=== PATIENT | female | born 1985 | race Caucasian/White ===

== ENCOUNTER 2017-02-04 11:10 | Outpatient (CLI) | payer MEDICAID ==
[2017-02-04 11:40] LABS: BILIRUBIN,URINE NEGATIVE (NEGATIVE)
[2017-02-04 11:43] LABS: BASOPHILS % (AUTO) 0.3 %; EOSINOPHILS # (AUTO) 0.1 10^3/uL (0.0-0.7); EOSINOPHILS % (AUTO) 1.5 %; HCT - HEMATOCRIT 37.2 % (37.0-47.0); HGB - HEMOGLOBIN 12.8 g/dL (12.0-16.0); LYMPHOCYTES # (AUTO) 1.5 10^3/uL (1.5-3.5); LYMPHOCYTES % (AUTO) 15.9 %; MEAN CORPUSCULAR HEMOGLOBIN 32.1 pg (27.0-31.0); MEAN CORPUSCULAR HGB CONC 34.3 g/dL (32.0-36.0); MEAN CORPUSCULAR VOLUME 93.5 fL (81.0-99.0); MEAN PLATELET VOLUME 9.3 fL (7.9-10.8); MONOCYTES # (AUTO) 0.6 10^3/uL (0.0-1.0); MONOCYTES % (AUTO) 6.8 %; NEUTROPHILS # (AUTO) 6.9 10^3/uL (1.5-6.6); NEUTROPHILS % (AUTO) 75.5 %; RED BLOOD COUNT 3.98 10^6/uL (4.20-5.40); RED CELL DISTRIBUTION WIDTH 11.7 % (12.0-15.0); UNCORRECTED WHITE BLOOD COUNT 9.2 x10^3/uL; WHITE BLOOD COUNT 9.2 x10^3/uL (4.8-10.8)
[2017-02-04 11:52] LABS: WBC,URINE 0-3 /HPF (0-5)
[2017-02-04 13:23] LABS: THYROID STIMULATING HORMONE 1.32 uIU/mL (0.34-5.60)
[2017-02-08 20:41] LABS: TEST RESULT REPORT
== END 2017-02-04 11:11 | disposition home or self-care (01) ==
LOC: LAB 11:10
PROVIDERS: ATTEND Registered Nurse
DX: Z36.9 Encounter for antenatal screening, unspecified (principal)
CPT/HCPCS: 36415; 81001; 81599; 84443; 85025; 86762; 86850; 86900; 86901; 87340; 87389

== ENCOUNTER 2017-02-21 11:20 | Outpatient (CLI) | payer MEDICAID ==
--- NOTE | 2017-02-21 15:43 | Ultrasound Report ---
TRANSVAGINAL IMAGING OF THE CERVIX: 02/21/2017 CLINICAL INDICATION: . TECHNIQUE: As requested, imaging of the cervix was performed. FINDINGS: The cervix measures 3.9 cm, and is closed. There is a single viable intrauterine gestation , with heart rate of 172 BPM. No free fluid is noted. IMPRESSION: A 3.9 CM CERVIX. SINGLE VIABLE GESTATION. JOB #: [id number] EXT JOB #:[id number]
== END 2017-02-21 11:21 | disposition home or self-care (01) ==
LOC: DI 11:20
PROVIDERS: ATTEND Registered Nurse
DX: Z34.81 Encounter for supervision of other normal pregnancy, first trimester (principal)
CPT/HCPCS: 76830

== ENCOUNTER 2017-03-07 18:06 | Outpatient (CLI) | payer MEDICAID ==
--- NOTE | 2017-03-08 15:01 | Ultrasound Report ---
TRANSVAGINAL OB ULTRASOUND: 03/07/2017 CLINICAL INDICATION: Personal history of cervical dysplasia status post LEEP. TECHNIQUE: Transvaginal imaging of the cervix was performed. FINDINGS: The cervix measures 4.5 cm, and is closed. A single viable intrauterine gestation is incidentally noted, with heart rate of 154 BPM. IMPRESSION: A 4.5 CM CERVICAL LENGTH. MTDD
== END 2017-03-07 18:07 | disposition home or self-care (01) ==
LOC: DI 18:06
PROVIDERS: ATTEND Registered Nurse
DX: Z87.410 Personal history of cervical dysplasia (principal)
CPT/HCPCS: 76817

== ENCOUNTER 2017-04-13 11:17 | Outpatient (CLI) | payer MEDICAID ==
--- NOTE | 2017-04-14 11:42 | Ultrasound Report ---
DATE OF SERVICE: 04/13/2017 LIMITED OB ULTRASOUND: 04/13/2017 COMPARISON: OB ultrasound 03/07/2017. INDICATION: Please evaluate cervical length. TECHNIQUE: Endovaginal and transabdominal evaluation. FINDINGS Cervical length measures 4.7 cm. There is no evidence of funneling. Amniotic fluid appears visually adequate. heart rate 150 beats per minute. presentation variable. IMPRESSION: NORMAL APPEARANCE OF THE CERVIX. FOLLOWUP IS AVAILABLE CLINICALLY INDICATED. TD: 04/13/2017 14:37 MTDD
== END 2017-04-13 11:18 | disposition home or self-care (01) ==
LOC: DI 11:17
PROVIDERS: ATTEND Registered Nurse
DX: Z34.81 Encounter for supervision of other normal pregnancy, first trimester (principal)
CPT/HCPCS: 76817

== ENCOUNTER 2017-04-25 12:28 | Outpatient (CLI) | payer MEDICAID ==
--- NOTE | 2017-04-27 15:47 | Ultrasound Report ---
DATE OF SERVICE: 04/25/2017 OB ANATOMY: 04/25/2017 CLINICAL INDICATION: anatomy, followup cervix (history of LEEP). TECHNIQUE: Real-time scanning was performed with route sales representative static images obtained. LAST MENSTRUAL PERIOD 12/02/2016 Clinical Age 20 weeks 4 days US Age 20 weeks 5 days EFW Hadlock 351 g EFW% Hadlock --- Heart Rate 154 bpm EDC 09/08/2017 US EDC 09/07/2017 BPD Hadlock 20 weeks 4 days; Mean mm 48.1 HC Hadlock 20 weeks 5 days; Mean mm 184.0 AC Hadlock 21 weeks 0 days; Mean mm 158.7 FL Hadlock 19 weeks 4 days; Mean mm 30.9 Presentation variable Placental Location posterior Cervical Length 4.44 cm Amniotic Fluid 4.2 cm COMPARISON: 04/13/2017, 03/07/2017, 02/21/2017. FINDINGS: There is a single viable intrauterine gestation, in variable position. heart rate is 154 BPM. The placenta is posterior, without evidence of previa. Cervical length is now 4.4 cm by transvaginal scanning. Amniotic fluid volume is subjectively normal, with a deepest pocket of 4.2 cm. By size, the fetus measures 20 weeks 5 days (20 weeks 4 days per physician office dating). The following anatomic structures were visualized and appear normal: The intracranial contents, including the ventricles and posterior fossa; the lips and orbits; the spine; the heart, including 4 chamber view and outflow tracts, and diaphragm; the abdominal contents, including the stomach, the bilateral kidneys, and urinary bladder, as well as a normal 3 vessel cord insertion; 4 limbs. Visualization of the heart (especially 4-chamber view) was limited by positioning. No free fluid or adnexal lesion is appreciated. IMPRESSION: SINGLE VIABLE INTRAUTERINE GESTATION, WITH SIZE IN KEEPING WITH OFFICE DATING. SUBOPTIMAL VISUALIZATION OF THE FOUR-CHAMBER VIEW OF THE HEART. OTHERWISE , NORMAL ANATOMIC SURVEY. POSTERIOR PLACENTA, WITHOUT EVIDENCE OF PREVIA. CERVICAL LENGTH OF 4.4 CM TRANSVAGINALLY. TD: 04/25/2017 18:46 MTDD
== END 2017-04-25 12:29 | disposition home or self-care (01) ==
LOC: DI 12:28
PROVIDERS: ATTEND Nurse Practitioner Obstetrics & Gynecology
DX: Z36.9 Encounter for antenatal screening, unspecified (principal)
CPT/HCPCS: 76811

== ENCOUNTER 2017-06-06 11:12 | Outpatient (CLI) | payer MEDICAID ==
--- NOTE | 2017-06-07 11:46 | Ultrasound Report ---
OB FOLLOWUP: 06/06/2017 CLINICAL INDICATION: Incomplete anatomy. COMPARISON: 04/25/2017. TECHNIQUE: Real-time scanning was performed with member service representative static images obtained. LAST MENSTRUAL PERIOD 12/03/2016 Clinical Age 26 weeks 3 days US Age 26 weeks 5 days EFW Hadlock 905 g EFW% Hadlock 45% Heart Rate 157 bpm EDC 09/09/2017 US EDC 09/07/2017 BPD Hadlock 26 weeks 6 days; Mean mm 66.8 HC Hadlock 27 weeks 3 days; Mean mm 252.9 AC Had[place] 26 weeks 4 days; Mean mm 221.3 FL Hadlock 25 weeks 2 days; Mean mm 45.9 Presentation cephalic Placental Location posterior Cervical Length --- Amniotic Fluid 15.0 cm FINDINGS: There is a single viable intrauterine gestation, in cephalic presentation. heart rate is 157 BPM. The placenta is posterior, without evidence of previa. Amniotic fluid volume is normal, with an SUSAN of 15.0. By size, the fetus measures 26 weeks 5 days (26 weeks 3 days by dating from the physician's office). The heart, including 4-chamber view, appears unremarkable. No free fluid or adnexal lesion is appreciated. IMPRESSION: UNREMARKABLE COMPLETION OF THE ANATOMIC SURVEY. EXPECTED GROWTH. MTDD
== END 2017-06-06 11:13 | disposition home or self-care (01) ==
LOC: DI 11:12
PROVIDERS: ATTEND Nurse Practitioner Obstetrics & Gynecology
DX: Z36.2 Encounter for other antenatal screening follow-up (principal)
CPT/HCPCS: 76816

== ENCOUNTER 2017-06-14 11:01 | Outpatient (CLI) | payer MEDICAID ==
[2017-06-14 12:56] LABS: HGB - HEMOGLOBIN 11.8 g/dL (12.0-16.0); MEAN CORPUSCULAR HEMOGLOBIN 31.8 pg (27.0-31.0); MEAN CORPUSCULAR HGB CONC 34.8 g/dL (32.0-36.0); MEAN CORPUSCULAR VOLUME 91.4 fL (81.0-99.0); MEAN PLATELET VOLUME 9.8 fL (7.9-10.8); RED BLOOD COUNT 3.71 10^6/uL (4.20-5.40); RED CELL DISTRIBUTION WIDTH 12.6 % (12.0-15.0); WHITE BLOOD COUNT 10.5 x10^3/uL (4.8-10.8)
== END 2017-06-14 11:02 | disposition home or self-care (01) ==
LOC: LAB 11:01
PROVIDERS: ATTEND Nurse Practitioner Obstetrics & Gynecology
DX: Z36.9 Encounter for antenatal screening, unspecified (principal)
CPT/HCPCS: 36415; 82950; 86850

== ENCOUNTER 2017-08-09 08:00 | Outpatient (CLI) | payer MEDICAID | END 2017-08-09 08:01 | disposition home or self-care (01) | LOC: LAB.R 08:00 | PROVIDERS: ATTEND Nurse Practitioner Obstetrics & Gynecology | DX: Z36.85 Encounter for antenatal screening for Streptococcus B (principal) | CPT/HCPCS: 87081 ==

== ENCOUNTER 2017-09-13 12:28 | Outpatient (CLI) | payer MEDICAID ==
[2017-09-13 12:58] LABS: BASOPHILS % (AUTO) 0.5 %; EOSINOPHILS # (AUTO) 0.1 10^3/uL (0.0-0.7); EOSINOPHILS % (AUTO) 1.1 %; HGB - HEMOGLOBIN 12.9 g/dL (12.0-16.0); LYMPHOCYTES # (AUTO) 1.2 10^3/uL (1.5-3.5); LYMPHOCYTES % (AUTO) 14.6 %; MEAN CORPUSCULAR HEMOGLOBIN 31.6 pg (27.0-31.0); MEAN CORPUSCULAR VOLUME 90.1 fL (81.0-99.0); MEAN PLATELET VOLUME 12.1 fL (7.9-10.8); MONOCYTES # (AUTO) 0.7 10^3/uL (0.0-1.0); MONOCYTES % (AUTO) 8.2 %; NEUTROPHILS # (AUTO) 6.4 10^3/uL (1.5-6.6); NEUTROPHILS % (AUTO) 75.6 %; PLT - PLATELET COUNT 127 10^3/uL (130-450); RED BLOOD COUNT 4.09 10^6/uL (4.20-5.40); RED CELL DISTRIBUTION WIDTH 13.4 % (12.0-15.0); WHITE BLOOD COUNT 8.4 x10^3/uL (4.8-10.8)
[2017-09-13 13:10] LABS: CREATININE 0.4 mg/dL (0.4-1.0); URIC ACID 5.4 mg/dL (2.6-7.2)
[2017-09-13 13:14] LABS: CREATININE,URINE 42.2 mg/dL; PROTEIN/CREATININE RATIO,URINE 0.2 (<=0.2)
[2017-09-13 13:49] VITALS: BP 132/78
== END 2017-09-13 14:23 | disposition home or self-care (01) ==
LOC: WFO 12:28 → FBP 12:29 → WFO 14:23
PROVIDERS: ATTEND Registered Nurse
DX: O13.3 Gestational [pregnancy-induced] hypertension without significant proteinuria, third trimester (principal); Z3A.40 40 weeks gestation of pregnancy
CPT/HCPCS: 36415; 82565; 82570; 83615; 84156; 84450; 84550; 85025

== ENCOUNTER 2017-09-13 12:50 | Inpatient (IN) | payer MEDICAID ==
[2017-09-13] MEDS ORDERED: SODIUM CHLORIDE FLUSH 0.9% 10 ML SYRINGE ONE (20:57)
[2017-09-13 21:30] LABS: BASOPHILS # (AUTO) 0.1 10^3/uL (0.0-0.1); BASOPHILS % (AUTO) 0.6 %; EOSINOPHILS # (AUTO) 0.1 10^3/uL (0.0-0.7); EOSINOPHILS % (AUTO) 1.2 %; HGB - HEMOGLOBIN 12.9 g/dL (12.0-16.0); LYMPHOCYTES # (AUTO) 1.4 10^3/uL (1.5-3.5); LYMPHOCYTES % (AUTO) 17.3 %; MEAN CORPUSCULAR HEMOGLOBIN 30.6 pg (27.0-31.0); MEAN CORPUSCULAR HGB CONC 33.6 g/dL (32.0-36.0); MONOCYTES # (AUTO) 0.7 10^3/uL (0.0-1.0); MONOCYTES % (AUTO) 8.8 %; NEUTROPHILS # (AUTO) 5.9 10^3/uL (1.5-6.6); NEUTROPHILS % (AUTO) 72.1 %; PLT - PLATELET COUNT 137 10^3/uL (130-450); RED BLOOD COUNT 4.21 10^6/uL (4.20-5.40); RED CELL DISTRIBUTION WIDTH 13.6 % (12.0-15.0); WHITE BLOOD COUNT 8.2 x10^3/uL (4.8-10.8)
[2017-09-13] MEDS ORDERED: fentaNYL 100 MCG/2 ML VIAL IVP PRN (22:01)
[2017-09-13] MEDS ORDERED: ONDANSETRON 4 MG/2 ML VIAL IVP PRN (22:01)
--- NOTE | 2017-09-13 22:07 | PROVIDER PROGRESS NOTE ---
Labor Progress Note - Uterine Monitoring Uterine Monitoring Mode: positive: External toco Contraction Frequency (min/apart): none - Monitoring Monitor Mode: positive: External ultrasound Heart Rate Baseline: 150 Heart Rate Variability: positive: Moderate (6-25 bmp) Accelerations: positive: Present, 15x15 Decelerations: positive: None Strip Review: positive: Category I - Vaginal Exam Dilation (in cm): FT Effacement (%): 70 Station: -2 Cervical Position: Midposition - Labor Progress Note Labor Progress Note/Additional Text: Bethany Zapata is a 31 y/o @ 40w4d by first trimester US who received consistent care from the first trimester onward. Her has only recently been complicated by new onset HTN w/ proteinuria & thrombocytopenia. She has been counseled regarding the possible & probable etiologies of these findings. She has no neuro s/sx. She has no neuro findings. She has had no severe-range BPs. She has no hx of pre-existing HTN. Induction of labor was recommended & preinduction cervical ripening is necessary. Bethany & Cleopatra have carefully considered all options & have elected mechanical ripening w/ placement of transcervical balloon catheter. Full PARQ was held & informed consent obtained. [place] catheter was placed in typical sterile fashion w/ use of speculum & stylet ; uterine balloon inflated w/ 60mL NS & vaginal balloon inflated w/ 40mL NS, traction applied & distal end of catheter taped to medial R thigh. Pt karissa well. Will reassess cervical status for expulsion in am & initiate misoprostol if no expulsion @ that point. Encouraged maternal rest.
[2017-09-14] MEDS: SODIUM CHLORIDE FLUSH 0.9% 10 ML SYRINGE IVP PRN (00:47)
[2017-09-14] MEDS: SODIUM CHLORIDE FLUSH 0.9% 10 ML SYRINGE IVP SCH ×3 (00:47→17:26)
[2017-09-14] MEDS: miSOPROStol 100 MCG TABLET BC SCH ×3 (09:18→18:26)
--- NOTE | 2017-09-14 09:19 | PROVIDER PROGRESS NOTE ---
Labor Progress Note - Uterine Monitoring Uterine Monitoring Mode: positive: External toco Contraction Frequency (min/apart): RARE - Monitoring Monitor Mode: positive: External ultrasound Heart Rate Baseline: 145 Heart Rate Variability: positive: Moderate (6-25 bmp) Accelerations: positive: Present, 15x15 Decelerations: positive: None Strip Review: positive: Category I - Vaginal Exam Dilation (in cm): 3 Effacement (%): 90 Station: -3 Cervical Position: Midposition - Labor Progress Note Labor Progress Note/Additional Text: S: Bethany is doing well. She did have difficulty sleeping overnight secondary to disruptions from necessary care & some discomfort w/ cramping s/p [place] catheter placement. She has had no LOF or bloody show. She does not feel she needs any intervention for her discomfort @ this time. She denies RUELAS/vision changes. O: AAOx3, NAD [place] female VSS: BP max 130s/80s @ this time EFM: BL 145bpm, +accels, no decels, mod jon TOCO: rare, occasional uterine contraction SVE: [place] catheter in place, cervix 3cm/90/-3, soft, midposition A: 31 y/o @ 40w5d by first trimester US, new onset HTN Preinduction cervical ripening w/ transcervical catheter placement GBS negative, IBOW FHTs cat I Normotensive @ present; thrombocytopenia stable, no neuro s/sx Adequate pain control w/ desire for unmedicated delivery P: 1. Reviewed induction process, will add misoprostol 50mcg q 4 hours until expulsion of catheter balloon 2. Encouraged intermittent rest & ambulation; re-apply traction to distal end of catheter 3. Reviewed gHTN, PET, re-assess labs this evening (x24 hours), earlier as indicated 4. Ongoing CEFM, ongoing careful BP evaluation w/ intervention as clinically warranted 5. Reassess cervical status x4 hours, earlier PRN 6. Reviewed plan of care w/ pt & RN @ bedside; Dr. Goodson, back-up MENTAL HEALTH CLINICIAN apprised of clinical scenario; all w/o concerns
[2017-09-14] MEDS: LACTATED RINGERS 1,000 ML IV SCH ×2 (09:21→09:22)
--- NOTE | 2017-09-14 18:29 | HISTORY & PHYSICAL EXAMINATION ---
Admit History - Instructions [place]ash: -Left hand click circles element as positive or present. -Right hand click slashes element as negative or not present. - Visit Reason Visit Reason: Other (induction of labor for gestational HTN) - : 4 Parity: 0 Premature: 0 Ectopic: 0 : 0 Care: positive: [facility] (initiated care @ 9 weeks' gestation x14 visits) Complications This : positive: induced HTN, Other ( hx of LEEP; cervical length stable, stenotic initially, able to be disrupted w/ uterine sound & placement of transcervical [place] catheter; rubella NI) Smoking Status: Former smoker - Mother's Labs Mother's Blood Type: positive: A Mother's RH: positive: Positive GBS: positive: Group B Step Negative Rubella Status: positive: Non-immune Meds/Allgy - Allergies Allergies/Adverse Reactions: Allergies Allergy/AdvReac Type Severity Reaction Status Date / Time No Known Drug Allergies Allergy Verified 09/13/17 23:47 Review of Systems - Constitutional Constitutional: denies: Fatigue, Fever, Chills - Eyes Eyes: denies: Blurred vision, Spots in vision, Dipolpia - Cardiovascular Cariovascular: denies: Irregular heart rate, Palpitations, Chest pain, Edema - Respiratory Respiratory: denies: Cough, Sputum production, Wheezing, Snoring - Gastrointestinal Gastrointestinal: reports: Abdominal pain (cramping w/ uterine contractions). denies: Constipation, Diarrhea, Nausea, Vomiting - Genitourinary Genitourinary: reports: Frequency, Urgency. denies: Dysuria - Musculoskeletal Musculoskeletal: reports: Back pain. denies: Muscle pain, Muscle aches - Integumentary Integumentary: denies: Rash, Pruritis, Lesions, Dryness - Neurological Neurological: denies: General weakness, Focal weakness, Headache, Numbness - Psychiatric Psychiatric: reports: Anxiety. denies: Depression - All Other Systems All Other Systems: reports: Other (+bloody show; no LOF, +uterine contractions, +FM) Physical - Abdominal Exam Vital Signs: Temp Pulse Resp BP Pulse Ox 36.7 C 96 16 107/62 99 09/14/17 08:00 09/14/17 08:00 09/14/17 08:00 09/14/17 08:00 09/14/17 08:00 Contraction Frequency (min/apart): 1-4 Contraction Intensity: positive: Mild to moderate Uterine Resting Tone: positive: Soft - Monitoring Heart Rate Baseline: 145 Strip Review: positive: Category I (moderate variability +accels, no decels) - Presentation Presentation: positive: Vertex ( position LOP w palpable hand above head) - Vaginal Exam Membranes: positive: Membranes intact Dilation (in cm): 6 Effacement (%): 80 Station: positive: Ballotable Cervical Position: positive: Anterior (soft) - Speculum Exam Speculum Exam Performed: positive: No Findings: negative: Gross leak - Other Notes Labor Progress Note/Additional Text: Bethany Zapata is a 31 y/o @ 40w6d by 9 week US, consistent w/ LMP dating, who presented for routine care, at which point elevated BP was identified & PET labs demonstrated mild thrombocytopenia & TP/Cr 0.2. Induction of labor w/ preinduction cervical ripening was recommended & the pt elected mechanical cervical ripening followed by combination mechanical-medical (prostaglandin) cervical ripening, which resulted in favorable cervical status over a period of 20 hours. Status post 2 doses buccal misoprostol 50mcg & transcervical catheter placement, SVE is 6/80/-2, midposition & soft. She is now admitted for induction of labor for gestational HTN @ term. She is merlyn regularly at this point & has IBOW. Bethany's has been complicated by a hx of LEEP w/ stable cervical status & initial cervical stenosis that resolved w/ transcervical balloon placement. She is Rubella non- immune & will need MMR vaccination in the period. Bethany intends to have an unmedicated delivery & has a detailed plan w/ her hopes & intentions. 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 [place]; denies ETOH/drugs/tobacco; hx anxiety, declines SSRI treatment, no hx depression PE: GEN: AAOX3, NAD [place] GRAVID FEMALE HEENT: GROSSLY NORMOCEPHALIC & ATRAUMATIC RESP: CTA B/L T/O CARDIAC: RRR NLS1S2, NO MURMUR GI: GRAVID, TENDER W/ CONTRACTIONS; CONTRACTIONS PALPABLY MODERATE; LIE LONGITUDINAL, PRESENTATION CEPHALIC; POSITION LOP : NO LESION, NO LOF, +BLOODY MUCOID EXUDATE; SVE: 6/80/-2 MS: FROM T/O, NO DEFORMITY, NO ERYTHEMA, NO NOTABLE EDEMA SKIN: WARM, WELL-PERFUSED, C/D/I, NO LESION NEURO: NO FOCAL DEFICIT PSYCH: MILD ANXIETY, PLEASANTLY CONVERSANT, WELL-SUPPORTED BY SISTERSHANA, & , CLEOPATRA Plan for Labor - Plan For Labor I expect patient to be DC'd or transferred within 96 hours.: Yes Plan for Labor: 1. Admit to inpatient 2. Repeat PET labs 3. Reviewed optimal positioning & maternal positioning to encourage rotation & descent 4. Reviewed pain management options & coping strategies, pt again interested in hydrotherapy; not interested in analgesia/anesthesia & is hoping to avoid both 5. Reviewed anticipatory guidance for active phase labor & second stage of labor 6. Reviewed present malposition & implications 7. Reassess cervical status x4 hours, earlier PRN; Anticipate Pitocin infusion if no cervical change x4 hours 8. Reviewed plan of care w/ pt, partner, pt's sister, RN @ bedside; all in agreement, without concerns; Dr. Goodson, back-up FACULTY ADMINISTRATOR apprised of clinical scenario; in agreement w/ present plan of care.
[2017-09-14 19:04] LABS: HGB - HEMOGLOBIN 12.3 g/dL (12.0-16.0); MEAN CORPUSCULAR HEMOGLOBIN 30.4 pg (27.0-31.0); MEAN CORPUSCULAR HGB CONC 33.2 g/dL (32.0-36.0); MEAN CORPUSCULAR VOLUME 91.4 fL (81.0-99.0); MEAN PLATELET VOLUME 11.5 fL (7.9-10.8); RED BLOOD COUNT 4.07 10^6/uL (4.20-5.40); RED CELL DISTRIBUTION WIDTH 13.4 % (12.0-15.0); WHITE BLOOD COUNT 11.3 x10^3/uL (4.8-10.8)
[2017-09-14 19:16] LABS: URIC ACID 5.4 mg/dL (2.6-7.2)
[2017-09-15] MEDS: CALCIUM CARBONATE CHEW 500 MG TABLET PO SCH ×2 (00:08→17:49)
--- NOTE | 2017-09-15 00:12 | PROVIDER PROGRESS NOTE ---
Labor Progress Note - Uterine Monitoring Uterine Monitoring Mode: positive: External toco Contraction Frequency (min/apart): irritability w/ occasional strong, inconsistent contractions Contraction Intensity: positive: Strong, Irritability Uterine Resting Tone: positive: Soft - Monitoring Monitor Mode: positive: External ultrasound Heart Rate Baseline: 140 Heart Rate Variability: positive: Moderate (6-25 bmp) Accelerations: positive: Present, 15x15 Decelerations: positive: None Strip Review: positive: Category I - Vaginal Exam Dilation (in cm): 7 Effacement (%): 80 Station: -3 Cervical Position: Midposition - Labor Progress Note Labor Progress Note/Additional Text: S: Bethany complains of cramping & back pain w/ uterine contractions. Her sister & are present at the bedside & involved & very supportive. She does not desire analgesia/anesthesia & is coping well w/ her discomfort. She has had no LOF but has had some copious bloody show O: AAOx3, NAD [place] female VSS, BP presently 126/86 PET labs stable, PLT 133K EFM BL 140bpm, +accels, no decels, mod jon TOCO: UCs q 2-6 min, palp strong, irritability between SVE: 7/80/-3 BBOW, position LOP, deflexed A: 31 y/o @ 41w gestation by 1st trimester US s/p effective mechanical/medical cervical ripening ghtn w/o severe-range BPs, no s/sx PET FHTs cat I Adequate pain control w/o analgesia/anesthesia malposition w/ likely ineffective labor pattern @ this time GBS negative w/ IBOW P: 1. Rebozo use demonstrated & performed over a period of an hour, alternating w/ position changes, reviewed optimal positioning & optimal maternal positioning to facilitate rotation & descent 2. Reviewed implications of position; will defer Pitocin infusion until position improves, will defer AROM 3. Reviewed management options @ this time; pt elects rest & augment in am if no further cervical change, feels she could rest, reviewed positioning in bed to promote rotation & descent 4. Reviewed pain management options 5. Ongoing careful monitoring for s/sx PET; BP stable, may defer assessment to promote maternal rest, reassess when she wakes 6. Will reassess cervical status x6 hours, earlier PRN 7. Reviewed plan of care w/ pt, pt's partner, pt's sister, RN @ bedside; all in agreement, without concern
[2017-09-15] MEDS: SODIUM CHLORIDE FLUSH 0.9% 10 ML SYRINGE IVP SCH ×5 (06:30→22:47)
--- NOTE | 2017-09-15 11:00 | PROVIDER PROGRESS NOTE ---
Labor Progress Note - Uterine Monitoring Uterine Monitoring Mode: positive: External toco Contraction Frequency (min/apart): 4-6 Contraction Intensity: positive: Moderate to strong Uterine Resting Tone: positive: Soft - Monitoring Monitor Mode: positive: External ultrasound Heart Rate Baseline: 145 Heart Rate Variability: positive: Moderate (6-25 bmp) Accelerations: positive: Present, 15x15 Decelerations: positive: None Strip Review: positive: Category I - Vaginal Exam Dilation (in cm): 7 Effacement (%): 80 Station: -2 Cervical Position: Midposition (soft; position KAY) - Labor Progress Note Labor Progress Note/Additional Text: S: Bethany is generally comfortable w/o desire for intervention for pain management. She was able to sleep for a consistent 6.5 hours overnight & feels refreshed. She is tolerating po intake w/o difficulty. She is noticing anterior cramping w/ contractions and no longer has back pain when she has contractions. She is freely mobile w/o limitation or discomfort. She continues to hope for minimal intervention w/o analgesia/anesthesia for pain management. She utilized the breast pump B/L this morning to stimulate endogenous oxytocin release w/ the effect of increasing the frequency, duration & intensity of uterine contractions. However, she does not feel that these contractions are any more consistent when she is not actively pumping. Cleopatra is present at the bedside & is involved & very supportive. O: AAOx3, NAD [place] female VSS BP 131/81 EFM: BL 145bpm, +accels, no decels, mod variability TOCO: UCs q4-6 min x60-120 min, palp strong SVE: 7/80/-2, midposition, soft, BBOW, position KAY A: 31 y/o @ 41w gestation by early first trimester US, IOL for ghtn No severe range BPs, stable PLT & PET labs, no s/sx severe PET FHTs cat I s/p effective mechanical & medical cervical ripening, not in active labor-- ineffective contraction pattern Adequate pain control w/o analgesia/anesthesia GBS neg w/ IBOW malposition corrected w/ maternal position changes/rebozo techniques P: 1. Reviewed management options @ this time, pt declines AROM for now, PARQ held re: Pitocin infusion; begin Pitocin infusion @ 2mU/min & titrate per protocol to maintain adequate contraction pattern by tocometry; pt may pump simultaneously to continue to encourage endogenous oxytocin release 2. Reviewed physiology of labor, anticipatory guidance for active phase labor, second stage of labor 3. Reviewed pain management options 4. Reviewed optimal maternal positioning to facilitate descent 5. Reassess cervical status x4 hours, earlier PRN 6. Reviewed plan of care w/ pt, partner & RN @ bedside; all in agreement, without concerns; Dr. Goodson, back-up PETROL TANKER DRIVER apprised re: pt's clinical scenario
[2017-09-15] MEDS: LACTATED RINGERS 1,000 ML IV SCH ×2 (11:10→19:06)
[2017-09-15] MEDS: OXYTOCIN/SODIUM CHLORIDE 500 ML IV SCH (11:19)
[2017-09-15] MEDS ORDERED: LIDOCAINE 1% 50 ML MDV ONE (15:11)
--- NOTE | 2017-09-15 18:17 | PROVIDER PROGRESS NOTE ---
Labor Progress Note - Uterine Monitoring Uterine Monitoring Mode: positive: External toco Contraction Frequency (min/apart): 2-3 minutes x4 hours on maximal Pitocin infusion of 4mU/min Contraction Intensity: positive: Moderate to strong Uterine Resting Tone: positive: Soft - Monitoring Monitor Mode: positive: External ultrasound Heart Rate Baseline: 145 Heart Rate Variability: positive: Moderate (6-25 bmp) Accelerations: positive: Present, 15x15 Decelerations: positive: None Strip Review: positive: Category I - Vaginal Exam Dilation (in cm): 7 Effacement (%): 80 Station: -2 Cervical Position: Midposition - Labor Progress Note Labor Progress Note/Additional Text: S: Bethany is very uncomfortable w/ contractions, able to breathe through them, able to be conversant between. Ambulating & moving about the room. Does not desire analgesia/anesthesia. Cleopatra & Mary are present & very involved & supportive. O: AAOx3, NAD [place] female VSS BP most recently 127/87 EFM BL 145bpm + accels, no decels, mod variability TOCO: UCs q2-3 minutes x60-80 seconds, palpably moderate SVE @ 1530: 7/80/-2 BBOW, face presentation; SVE @ 1730 7/80/-2 BBOW, face presentation, despite attempts to rotate w/ maternal position changes, Pitocin infusion discontinued @ 1730 secondary to persistent malpresentation A: 31 y/o @ 41w gestation, IOL secondary to ghtn w/o s/sx severe PET GBS negative, IBOW FHTs cat I Persistent malpresentation w/o cervical change despite adequate contractions by tocometry >4 hours Adequate pain control w/o desire for analgesia/anesthesia @ this time Normotensive w/o severe-range pressures P: 1. Reviewed clinical scenario & implications @ length w/ pt, partner & pt's sister 2. Reviewed attendant risks of continuing current course of action, including persistent malpresentation w/ failure to descend, difficulty disengaging the head during surgery, cord prolapse w/ SROM; Pitocin to remain off 3. Dr. Goodson DO, called to bedside to evaluate pt; he recommends operative delivery, given risks & no cervical change, persistence of malpresentation 4. Reviewed at length LTCS process & Dr. Goodson @ bedside to consent pt for LTCS 5. Anticipate primary LTCS for failure to progress in the setting of malpresentation
[2017-09-15] MEDS ORDERED: AZITHROMYCIN 250 MG TABLET PO STA (19:03)
[2017-09-15] MEDS ORDERED: ceFAZolin 2 GM/50 ML 2 GM/50 ML BAG IV SCH (19:15)
[2017-09-15] MEDS ORDERED: CITRIC ACID/SODIUM CITRATE 15 ML UDC PO ONE ×3 (19:19→20:53)
[2017-09-15] MEDS ORDERED: METHYLERGONOVINE 0.2 MG/ML AMP IM PRN (19:27)
[2017-09-15] MEDS ORDERED: diphenhydrAMINE INJ 50 MG/ML VIAL IVP PRN (19:27)
[2017-09-15] MEDS ORDERED: OXYTOCIN 10 UNIT/ML VIAL IV ONE ×2 (19:27→20:53)
[2017-09-15] MEDS ORDERED: TERBUTALINE 1 MG/ML VIAL SUBQ ONE (19:31)
[2017-09-15] MEDS ORDERED: LACTATED RINGERS 1,000 ML IV ONE ×2 (19:51→20:30)
[2017-09-15] MEDS ORDERED: LACTATED RINGERS 1,000 ML IV SCH (20:00)
[2017-09-15] MEDS ORDERED: fentaNYL 100 MCG/2 ML VIAL IVP ONE (20:53)
[2017-09-15] MEDS ORDERED: ePHEDrine 50 MG/ML VIAL IVP ONE (20:53)
--- NOTE | 2017-09-15 21:41 | PROCEDURE REPORT ---
Hospitalist Procedure Note - Procedure Note Procedure Note: POST-OPERATIVE NOTE: PRE-OP DX: 41 WEEKS, FAILURE TO PROGRESS, FACE PRESENTATION POST-OP DX: SAME OPERATION PEFORMED: EDWINA SURGEON: NOLVIA ASSIST: [place]IDA FOUNTAIN GUERRIER: EUNICE PACKAGING MACHINE SUPPLIES DISTRIBUTOR: VIVEK ANS: SPINAL FINDINGS: NORMAL ADNEXA BL, 3 VESSEL CORD, CLEAR AF, NORMAL PLACENTA, LOOSE NUCHAL CORD, VIABLE MALE (WT. PENDING) WITH 9/9 DELIVERED AT 2035 HOURS. PRE-OP ABX: ANCEF 2 GM, ZITHROMAX 500 MG FLUIDS (ML): LR 1,400 EBL 800 UO 300 DRAIN: WAY SPECIMEN: NONE COMPLICATIONS: NONE CONDITION: STABLE
[2017-09-15] MEDS ORDERED: ONDANSETRON 4 MG/2 ML VIAL IVP PRN (22:03)
[2017-09-15] MEDS: SIMETHICONE CHEW 80 MG TABLET PO SCH (22:45)
[2017-09-15] MEDS: DOCUSATE SODIUM 100 MG CAPSULE PO SCH (22:45)
[2017-09-15] MEDS: KETOROLAC 30 MG/ML VIAL IV SCH (22:47)
--- NOTE | 2017-09-15 23:16 | OPERATIVE REPORT ---
DATE OF SERVICE: 09/15/2017 Physician: Levi Goodson DO PREOPERATIVE DIAGNOSES: 1. 41 weeks' gestation. 2. Failure to progress. 3. Face presentation. POSTOPERATIVE DIAGNOSES: 1. 41 weeks' gestation. 2. Failure to progress. 3. Face presentation. NAME OF PROCEDURE: Low transverse section. SURGEON: Levi Goodson DO CTC OPERATOR: [address] CNM CHICK GRADER: Dr. Tarango ANESTHESIA: Spinal INTRAOPERATIVE FINDINGS: Normal adnexa bilaterally, 3-vessel cord, clear amniotic fluid upon entry into the uterine cavity. Normal placenta. Loose nuchal cord at the time of delivery. The delivery was productive of a viable male infant with Apgars of 9 and 9, that delivered at 2035 hours. The weight is pending at the time of this dictation. PREOPERATIVE ANTIBIOTICS: 2 g of Ancef and 500 mg of Zithromax. INTRAOPERATIVE FLUIDS: Lactated Ringer's 1400 mL. ESTIMATED BLOOD LOSS: 800 mL. URINE OUTPUT: 300 mL DRAIN: A Garcia. SPECIMENS: None. COMPLICATIONS: None. CONDITION: Stable. DESCRIPTION OF PROCEDURE: The patient was appropriately counseled and consented for the operation. She was taken to the operating room where an adequate anesthetic level was achieved after spinal anesthesia, placed in supine position with the right hip roll. A normal heart rate was obtained with the Doppler. The patient was prepped and draped in routine fashion with a Garcia catheter in place. After the patient was prepped and draped and adequate anesthetic level was confirmed, a Pfannenstiel incision was made. Sharp dissection was carried down to the level of the fascia, which was nicked on both sides at the midline. The fascial incision was extended laterally and upwards sharply. The peritoneal cavity entered bluntly. The bladder blade inserted. A bladder flap created and a low transverse uterine incision was made with the scalpel and was extended laterally and upwards sharply with bandage scissors. Clear amniotic fluid was noted upon entry into the uterine cavity. The head was elevated easily through the uterine incision. The loose nuchal cord was reduced. The umbilical cord was clamped x2, cut between the clamps and the infant was handed to the sales support rep. IV Pitocin was then started. Cord blood was obtained. The placenta delivered spontaneously. The uterus was exteriorized and wrapped with a moist laparotomy sponge. The uterine incision was closed in 2 layers, the first a running locking layer of 1 chromic and the second an imbricating layer of 1 chromic. Several [id number] sutures along the incision were required for hemostasis. The anterior and posterior cul-de-sacs were irrigated , suctioned and noted to be dry. The pericolic gutters were noted to be dry. Peritoneal edges and muscle bellies were noted to be dry. The fascia was closed with a running 1 Vicryl. The subcutaneous fat irrigated, suctioned and noted to be dry. The skin was reapproximated with a running subcuticular suture of 3-0 Monocryl, followed by Steri-Strips and a sterile dressing. All sponge, needle and instrument counts were correct. The patient was transferred to the recovery room in good condition. TD: 09/15/2017 22:51 STORM
[2017-09-16] MEDS ORDERED: CARBOPROST TROMETHAMINE 250 MCG/ML AMP IM SCH (01:34)
[2017-09-16] MEDS: oxyCOD/ACETAMIN 5 MG/325 MG TABLET PO PRN ×6 (02:51→23:11)
[2017-09-16] MEDS: ACETAMINOPHEN 500 MG TABLET PO SCH ×4 (03:35→20:55)
[2017-09-16] MEDS: KETOROLAC 30 MG/ML VIAL IV SCH ×2 (04:42→11:04)
[2017-09-16] MEDS: SODIUM CHLORIDE FLUSH 0.9% 10 ML SYRINGE IVP PRN ×2 (04:47→11:04)
[2017-09-16 05:44] LABS: BASOPHILS % (AUTO) 0.2 %; EOSINOPHILS % (AUTO) 0.3 %; HGB - HEMOGLOBIN 10.1 g/dL (12.0-16.0); LYMPHOCYTES # (AUTO) 0.9 10^3/uL (1.5-3.5); LYMPHOCYTES % (AUTO) 8.4 %; MEAN CORPUSCULAR HEMOGLOBIN 31.6 pg (27.0-31.0); MEAN CORPUSCULAR HGB CONC 34.2 g/dL (32.0-36.0); MEAN CORPUSCULAR VOLUME 92.5 fL (81.0-99.0); MEAN PLATELET VOLUME 10.6 fL (7.9-10.8); MONOCYTES # (AUTO) 0.8 10^3/uL (0.0-1.0); MONOCYTES % (AUTO) 7.3 %; NEUTROPHILS # (AUTO) 9.4 10^3/uL (1.5-6.6); NEUTROPHILS % (AUTO) 83.8 %; PLT - PLATELET COUNT 100 10^3/uL (130-450); RED BLOOD COUNT 3.18 10^6/uL (4.20-5.40); RED CELL DISTRIBUTION WIDTH 13.8 % (12.0-15.0); WHITE BLOOD COUNT 11.2 x10^3/uL (4.8-10.8)
[2017-09-16] MEDS: SIMETHICONE CHEW 80 MG TABLET PO SCH ×2 (06:21→14:16)
[2017-09-16] MEDS: OXYTOCIN/SODIUM CHLORIDE 500 ML IV SCH ×3 (07:42→11:26)
[2017-09-16] MEDS ORDERED: AZITHROMYCIN INJ 500 MG in SODIUM CHLORIDE 0.9% 250 ML IV SCH (09:00)
[2017-09-16] MEDS: SODIUM CHLORIDE FLUSH 0.9% 10 ML SYRINGE IVP SCH ×3 (09:13→22:22)
[2017-09-16] MEDS: CALCIUM CARBONATE CHEW 500 MG TABLET PO SCH ×4 (09:17→20:22)
[2017-09-16] MEDS: DOCUSATE SODIUM 100 MG CAPSULE PO SCH ×2 (09:43→22:21)
[2017-09-16] MEDS: LACTATED RINGERS 1,000 ML IV SCH (09:59)
[2017-09-16] MEDS ORDERED: fentaNYL 100 MCG/2 ML VIAL IVP PRN (10:38)
--- NOTE | 2017-09-16 12:58 | PROVIDER PROGRESS NOTE ---
Subjective - Prog Note Date Prog Note Date: 09/16/17 Prog Note Time: 12:55 - Subjective Subjective: FRESH FOODS CLERK: POD #1 S/P LUST C/S FOR FTP/FACE PRESENTATION S: No complaints, ambulating, peres out, tolerating diet O: VSS/AF Ux Firm U-6 and NT Dressing on, will remove after shower. : normal lochia MS/NM: No calf pain A/P: Doing well Routine post-op care Encouraged ambulation. Objective - Vital Signs/Intake & Output Vital Signs: Vital Signs x48h Temp Pulse Resp BP Pulse Ox 09/16/17 12:15 37.2 C 88 16 108/61 99 09/16/17 08:00 36.7 C 87 16 117/80 99 09/16/17 05:56 36.5 C 83 16 112/69 98 Intake & Output: Intake & Output 09/13/17 09/14/17 09/15/17 09/16/17 23:59 23:59 23:59 23:59 Intake Total 1000 44 Output Total 5 1675 Balance 995 -1631 - Lab Results Fish Bones: 09/16/17 05:24 Other Labs: Lab Results x24hrs 09/16/17 Range/Units 05:24 WBC 11.2 H (4.8-10.8) x10^3/uL RBC 3.18 L (4.20-5.40) 10^6/uL Hgb 10.1 L (12.0-16.0) g/dL Hct 29.4 L (37.0-47.0) % MCV 92.5 (81.0-99.0) fL MCH 31.6 H (27.0-31.0) pg MCHC 34.2 (32.0-36.0) g/dL RDW 13.8 (12.0-15.0) % Plt Count 100 L (130-450) 10^3/uL MPV 10.6 (7.9-10.8) fL Neut # (Auto) 9.4 H (1.5-6.6) 10^3/uL Lymph # (Auto) 0.9 L (1.5-3.5) 10^3/uL [place] # (Auto) 0.8 (0.0-1.0) 10^3/uL Eos # (Auto) 0.0 (0.0-0.7) 10^3/uL Baso # (Auto) 0.0 (0.0-0.1) 10^3/uL Absolute Nucleated RBC 0.01 x10^3/uL Nucleated RBC % 0.0 /100WBC
[2017-09-16] MEDS: IBUPROFEN 800 MG TABLET PO SCH (20:22)
[2017-09-17] MEDS: IBUPROFEN 800 MG TABLET PO SCH ×4 (02:44→21:31)
[2017-09-17] MEDS: oxyCOD/ACETAMIN 5 MG/325 MG TABLET PO PRN ×7 (02:44→21:32)
[2017-09-17] MEDS: SIMETHICONE CHEW 80 MG TABLET PO SCH ×3 (08:34→18:01)
[2017-09-17] MEDS: DOCUSATE SODIUM 100 MG CAPSULE PO SCH ×2 (08:34→21:31)
[2017-09-17] MEDS: SODIUM CHLORIDE FLUSH 0.9% 10 ML SYRINGE IVP SCH (14:27)
--- NOTE | 2017-09-17 14:42 | PROVIDER PROGRESS NOTE ---
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 Rx Percocet 5/325, #12: 1 p.o. q4h prn pain as outside pain med and discharge med Anticipate D/C home tomorrow AM. Objective - Vital Signs/Intake & Output Vital Signs: Vital Signs x48h Temp Pulse Resp BP Pulse Ox 09/17/17 11:40 36.8 C 88 18 104/65 99 09/17/17 08:00 36.9 C 84 16 104/62 99 Intake & Output: Intake & Output 09/14/17 09/15/17 09/16/17 09/17/17 23:59 23:59 23:59 23:59 Intake Total 1000 44 700 Output Total 5 2024 Balance 995 -1980 700 - Lab Results Fish Bones: 09/16/17 05:24
[2017-09-17] MEDS ORDERED: MEASLES,MUMPS & RUBELLA VACC 0.5 ML VIAL SUBQ ONE (15:00)
[2017-09-18] MEDS: IBUPROFEN 800 MG TABLET PO SCH ×2 (02:53→15:28)
[2017-09-18] MEDS: SIMETHICONE CHEW 80 MG TABLET PO SCH ×3 (02:54→08:32)
[2017-09-18] MEDS: ACETAMINOPHEN 500 MG TABLET PO SCH ×5 (07:05→15:30)
[2017-09-18] MEDS: oxyCOD/ACETAMIN 5 MG/325 MG TABLET PO PRN ×3 (07:10→15:29)
[2017-09-18] MEDS: KETOROLAC 30 MG/ML VIAL IV SCH (07:37)
[2017-09-18] MEDS: SODIUM CHLORIDE FLUSH 0.9% 10 ML SYRINGE IVP SCH ×10 (07:37→07:43)
[2017-09-18] MEDS: CALCIUM CARBONATE CHEW 500 MG TABLET PO SCH ×2 (07:38→07:39)
[2017-09-18] MEDS: DOCUSATE SODIUM 100 MG CAPSULE PO SCH (08:32)
[2017-09-18] MEDS ORDERED: MAGNESIUM HYDROXIDE 2,400 MG/30 ML UDC PO PRN (11:44)
--- NOTE | 2017-09-18 12:31 | DISCHARGE SUMMARY ---
Discharge Summary - ALLERGIES Allergies/Adverse Reactions: Allergies Allergy/AdvReac Type Severity Reaction Status Date / Time No Known Drug Allergies Allergy Verified 09/13/17 23:47 - LABS Result Diagrams: 09/16/17 05:24
--- NOTE | 2017-09-18 13:04 | Discharge Plan ---
Discharge Plan Disposition: Home, Self Care Condition: Good Prescriptions: RX: oxyCODONE/ACET 5/325 [Percocet 5 mg/325 mg] 1 tab PO Q4HR PRN #12 tablet PRN Reason: Pain Diet: Regular Activity Restrictions: no sex or strenuous activity x 6 weeks Shower Restrictions: No Driving Restrictions: Yes (2 weeks) Weight Bearing: Full Weight No Smoking: If you smoke, Please STOP! Call for help. Follow-up with: Lino Stoddard MD [Provider Admit Priv/Credential] -
--- NOTE | 2017-09-18 13:11 | DISCHARGE SUMMARY ---
"Discharge Summary Admit Date: 09/14/17 Discharge Date: 09/18/17 Discharging Provider: NOLVIA Code Status: Attempt Resuscitation Condition at Discharge: Good - DIAGNOSES Admission Diagnoses: GESTATIONAL HYPERTENSION Discharge Diagnoses with Status of Each Condition: GESTATIONAL HYPERTESION, STABLE , STABLE - HPI History of Present Illness: Bethany Zapata is a 31 y/o @ 40w6d by 9 week US, consistent w/ LMP dating, who presented for routine care, at which point elevated BP was identified & PET labs demonstrated mild thrombocytopenia & TP/Cr 0.2. Induction of labor w/ preinduction cervical ripening was recommended & the pt elected mechanical cervical ripening followed by combination mechanical-medical (prostaglandin) cervical ripening, which resulted in favorable cervical status over a period of 20 hours. Status post 2 doses buccal misoprostol 50mcg & transcervical catheter placement, SVE is 6/80/-2, midposition & soft. She is now admitted for induction of labor for gestational HTN @ term. She is merlyn regularly at this point & has IBOW. Bethany's has been complicated by a hx of LEEP w/ stable cervical status & initial cervical stenosis that resolved w/ transcervical balloon placement. She is Rubella non- immune & will need MMR vaccination in the period. Bethany intends to have an unmedicated delivery & has a detailed plan w/ her hopes & intentions. 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 She progressed to 7 cm dilation and developed a face presentation/mentum posterior, along with failure to progress. She underwent an uncomplicated LUST on 09/15/17 and delivered viable 4087 gm male with 9/9. She had an uncomplicated postoperative course, platelet count 100K post-op. She has a Pfanenstiel incision reinforced with steri strips. - ALLERGIES Allergies/Adverse Reactions: Allergies Allergy/AdvReac Type Severity Reaction Status Date / Time No Known Drug Allergies Allergy Verified 09/13/17 23:47 - MEDICATIONS Home Medications: Ambulatory Orders Medication Instructions Recorded Confirmed oxyCODONE/ACET 5/325 [Percocet 5 1 tab PO Q4HR PRN #12 tablet 09/18/17 mg/325 mg] - PHYSICAL EXAM AT DISCHARGE General Appearance: positive: No acute distress, Alert Eyes Bilateral: positive: Normal inspection ENT: positive: ENT inspection nml Neck: positive: Nml inspection Respiratory: positive: No respiratory distress Cardiovascular: positive: Regular rate & rhythm Abdomen: positive: Non-tender Skin: positive: Color nml, No rash, Warm Extremities: positive: Non-tender - LABS Result Diagrams: 09/16/17 05:24 - FOLLOW UP Follow Up: FOLLOW UP IN [facility] IN 2 WEEKS FOR AN INCISION CHECK. - TIME SPENT Time Spent in Discharge (Minutes): 60"
[2017-09-18 15:17] VITALS: BP 124/72
== END 2017-09-18 15:45 | disposition home or self-care (01) | DRG 766 ==
LOC: EDSTATUS 12:50 → FBP 20:05 → WFO 20:12 → FBP 20:23 → WFO 20:28 → UNDOADMOB 20:29 → FBP 20:29 → OBSVTOIN 09-14 18:24 → INTOOBSV 09-14 18:24 → FBP 09-17 22:18 → OBS 09-17 22:18 → UNDODISIN 09-18 15:45
PROVIDERS: ADMIT Registered Nurse; ATTEND Obstetrics & Gynecology
PROC: 10D00Z1 Extraction of Products of Conception, Low, Open Approach (ICD-10-PCS; principal; 2017-09-15 19:30)
DX: O14.04 Mild to moderate pre-eclampsia, complicating childbirth (principal); O34.43 Maternal care for other abnormalities of cervix, third trimester; N88.2 Stricture and stenosis of cervix uteri; O99.344 Other mental disorders complicating childbirth; F41.1 Generalized anxiety disorder; O64.2XX0 Obstructed labor due to face presentation, not applicable or unspecified; O66.40 Failed trial of labor, unspecified; O69.81X0 Labor and delivery complicated by cord around neck, without compression, not applicable or unspecified; Z37.0 Single live birth; Z3A.40 40 weeks gestation of pregnancy; Z87.42 Personal history of other diseases of the female genital tract; Z28.3 Underimmunization status
CPT/HCPCS: 36415; 59025; 59200; 82565; 82570; 83615; 84156; 84450; 84460; 84550; 85025; 85027

== ENCOUNTER 2020-03-17 07:00 | Outpatient (CLI) | payer MEDICAID | END 2020-03-17 23:59 | disposition home or self-care (01) | LOC: LAB 07:00 | PROVIDERS: ATTEND Obstetrics & Gynecology | DX: R10.9 Unspecified abdominal pain (principal) | CPT/HCPCS: 87086 ==

== ENCOUNTER 2020-08-18 08:00 | Outpatient (CLI) | payer MEDICAID ==
[2020-08-19 10:35] LABS: BILIRUBIN,URINE NEGATIVE (NEGATIVE); GLUCOSE, URINE (UA) NEGATIVE (NEGATIVE); KETONES,URINE (UA) TRACE mg/dL (NEGATIVE); LEUKOCYTE ESTERASE, URINE NEGATIVE (NEGATIVE); NITRITE,URINE NEGATIVE (NEGATIVE); OCCULT BLOOD,URINE NEGATIVE (NEGATIVE); PH,URINE 6.5 PH (5.0-7.5); PROTEIN,URINE NEGATIVE (NEGATIVE); UROBILINOGEN,URINE 0.2 (NORMAL) E.U./dL (NORMAL)
[2020-08-19 10:36] LABS: CLARITY,URINE SL. CLOUDY (CLEAR)
[2020-08-19 10:44] LABS: AMORPHOUS SEDIMENT,UR Moderate /LPF; BACTERIA,URINE Few /HPF (None Seen); RBC,URINE 0-5 /HPF (0-5); SQUAMOUS EPITHELIAL CELL,UR FEW Squamous (<= Few); WBC,URINE 0-3 /HPF (0-5)
== END 2020-08-18 23:59 | disposition home or self-care (01) ==
LOC: LAB.R 08:00
PROVIDERS: ATTEND Obstetrics & Gynecology
DX: R10.9 Unspecified abdominal pain (principal)
CPT/HCPCS: 81001; 87086

== ENCOUNTER 2020-08-30 18:49 | Outpatient (CLI) | payer MEDICAID ==
--- NOTE | 2020-08-30 23:03 | Ultrasound Report ---
PROCEDURE: Pelvic w/Transvaginal INDICATIONS: PELVIC PAIN TECHNIQUE: Real-time scanning was performed of the pelvic organs, with image documentation. Additional endovagi nal scanning was necessary due to incomplete visualization of the adnexal and endometrial structures by transabdominal scanning. COMPARISON: None. FINDINGS: No pathologic free abdominal or pelvic fluid. Uterus: Uterus is normal in size at 7.9 x 3.9 x 5.1 cm. The endometrium measures 4 mm in combined t hickness. An intrauterine device is visualized within the endometrial cavity and appears to be approp riately positioned. Ovaries: Right ovary measures 3.4 x 2.4 x 2.7 cm with ovarian volume of 11.6 mL. Left ovary measures 3.7 x 1.7 x 2.8 cm with ovarian volume of approximately 9.7 mL. No ovarian or adnexal mass lesions. IMPRESSION: An intrauterine device is visualized within the endometrial cavity and appears appropriately position ed. Otherwise, unremarkable sonographic evaluation of the uterus and bilateral ovaries. Reviewed by: Cory Coelho MD on 08/30/2020 11:02 PM PDT Approved by: Cory Coelho MD on 08/30/2020 11:02 PM PDT Station ID: [id number]
== END 2020-08-30 18:50 | disposition home or self-care (01) ==
LOC: DI 18:49
PROVIDERS: ATTEND Obstetrics & Gynecology
DX: R10.2 Pelvic and perineal pain (principal); Z97.5 Presence of (intrauterine) contraceptive device

== ENCOUNTER 2020-09-16 18:47 | Outpatient (CLI) | payer MEDICAID ==
--- NOTE | 2020-09-17 13:42 | Ultrasound Report ---
PROCEDURE: Retroperitoneal INDICATIONS: FLANK PAIN TECHNIQUE: Real-time scanning was performed of the retroperitoneal organs, with image documentation. COMPARISON: None. FINDINGS: Kidneys: Kidneys are normal in size. Right kidney measures 11.4 cm long; left kidney measures 11.4 cm long. Right renal cortical thickness is 1.3 cm; left renal cortical thickness is 1.6 cm. No francisca d masses, hydronephrosis, or nephrolithiasis. Bladder: Prevoid volume measures 46 cc, post void residual 6.4 cc bilateral ureteral jets are identif ied. Bladder is poorly distended. IMPRESSION: Grossly unremarkable exam. Evaluation of the bladder secondary to incomplete distention. Reviewed by: Waleska Ramos MD on 09/17/2020 1:41 PM PDT Approved by: Waleska Ramos MD on 09/17/2020 1:41 PM PDT Station ID: [id number]
== END 2020-09-16 18:48 | disposition home or self-care (01) ==
LOC: DI 18:47
PROVIDERS: ATTEND Obstetrics & Gynecology
DX: R10.9 Unspecified abdominal pain (principal)

== ENCOUNTER 2022-01-04 11:57 | Outpatient (CLI) | payer MEDICAID ==
[2022-01-05 06:09] LABS: HSV 2 IGG TYPE SPEC <0.91 index (0.00-0.90)
== END 2022-01-04 11:58 | disposition home or self-care (01) ==
LOC: LAB 11:57
PROVIDERS: ATTEND Obstetrics & Gynecology
DX: B00.9 Herpesviral infection, unspecified (principal)
CPT/HCPCS: 86695; 86696

== ENCOUNTER 2022-05-06 08:00 | Outpatient (CLI) | payer MEDICAID | END 2022-05-06 23:59 | disposition home or self-care (01) | LOC: LAB.N 08:00 | PROVIDERS: ATTEND Physician Assistant | DX: N60.02 Solitary cyst of left breast (principal) | CPT/HCPCS: 87070; 87205 ==